=== PATIENT | male | born 1985 | race Caucasian/White ===

== ENCOUNTER 2018-08-28 23:06 | Emergency (ER) | payer OTHER ==
[~2018-08-28] VITALS: Ht 177.8 cm; Wt 81.6 kg
[~2018-08-28 23:06] MED LIST: AMOXICILLIN500 M2 PO; BENTYL20 MG PO; CARBIDOPA/LEVOD1 TA1 PO; CIPROFLOXACIN500 MG PO; IBU-8800 MG PO; KEFLEX500 MG PO; MOTRIN800 MG PO; Motrin,Rufen800 MG PO; NKHM PO; PEN-VEE K500 MG PO; PHENERGAN W/DM120 ML PO; PREDNICOT20 MG PO; PREDNISONE10 MG PO; PROAIR HFA0.09 MG/AC IH; SUBOXONE 8 MG-1 EACH SL; SUBUTEX8 M1 SL; TESSALON PERLE200 MG PO; TOBRAMYCIN OP; TRAMADOL HCL50 MG PO; TRAZODONE50 MG PO; WYMOX500 MG PO; ZANTAC150 MG PO; ZITHROMAX250 MG PO
[2018-08-29 00:55] LABS: BASO % 0.5 % (0.0-1.0); EOS # 0.2 10*3/uL (0.0-0.4); EOS % 2.2 % (1.0-4.0); HEMATOCRIT 37.1 % (42.0-52.0); HEMOGLOBIN 12.7 g/dl (14.0-18.0); LYMPH # 2.6 10*3/uL (1.3-4.4); LYMPH % 34.8 % (27.0-41.0); MEAN CELL VOLUME 93.7 fl (80.0-94.0); MEAN CORPUSCULAR HGB 32.1 pg (27.0-31.0); MEAN CORPUSCULAR HGB CONC 34.2 g/dl (33.0-37.0); MEAN PLATELET VOLUME 11.2 fl (9.6-12.3); MONO # 0.6 10*3/uL (0.1-1.0); MONO % 7.8 % (3.0-9.0); NEUT % 54.4 % (47.0-73.0); PLATELET COUNT AUTOMATED 243 10*3/uL (130-400); RED BLOOD COUNT 3.96 10*6/uL (4.50-5.90); RED CELL DISTRI WIDTH 12.6 % (0-14.5); WHITE BLOOD COUNT 7.4 10*3/uL (4.8-10.8)
[2018-08-29 01:24] LABS: ALBUMIN 3.9 gm/dl (3.1-4.5); ALKALINE PHOSPHATASE 57 U/L (45-117); BUN 10 mg/dl (7-24); CHLORIDE 103 mmol/L (98-107); CREATININE 0.81 mg/dL (0.70-1.30); LIPASE 78 U/L (73-393); POTASSIUM 3.8 mmol/L (3.5-5.1); SGOT/AST 27 IU/L (3-35); SGPT/ALT 25 U/L (12-78); SODIUM 139 mmol/L (136-145); TOTAL PROTEIN 7.2 gm/dL (6.4-8.2)
[2018-08-29 01:40] LABS: BILIRUBIN NEGATIVE (NEGATIVE); BLOOD NEGATIVE (NEGATIVE); CLARITY CLEAR (CLEAR); COLOR YELLOW (YELLOW); GLUCOSE NEGATIVE (NEGATIVE); KETONE NEGATIVE (NEGATIVE); LEUKO ESTERASE NEGATIVE (NEGATIVE); NITRITE NEGATIVE (NEGATIVE); SPECIFIC GRAVITY <= 1.005 (1.005-1.030); UROBILINOGEN 0.2 E.U./dl (0.2-1.0)
[2018-08-29 01:47] LABS: BACTERIA TRACE; WBC 0-2 wbc/hpf (0-5)
[2018-08-29] MEDS ORDERED: LOMOTIL 2.5-0.1 EACH PO (01:57)
[2018-08-29] MEDS ORDERED: ZOFRAN4 MG PO (01:57)
== END 2018-08-29 02:12 | disposition home or self-care (01) ==
LOC: ED 23:06
PROVIDERS: Emergency Medicine Emergency Medical Services
DX: K52.9 Noninfective gastroenteritis and colitis, unspecified (principal); E86.0 Dehydration; F17.200 Nicotine dependence, unspecified, uncomplicated

== ENCOUNTER 2021-03-12 08:11 | Emergency (ER) | payer OTHER ==
[~2021-03-12] VITALS: Ht 170.1 cm; Wt 68.0 kg
[~2021-03-12 08:11] MED LIST changes: +LOMOTIL 2.5-0.1 EACH PO; +SEPTDS PO; +ZOFRAN4 MG PO
[2021-03-12 08:57] LABS: BASO % 0.5 % (0.0-1.0); EOS # 0.1 10*3/uL (0.0-0.4); EOS % 1.4 % (1.0-4.0); HEMATOCRIT 34.8 % (42.0-52.0); LYMPH # 1.5 10*3/uL (1.3-4.4); LYMPH % 24.5 % (27.0-41.0); MEAN CELL VOLUME 87.2 fl (80.0-94.0); MEAN CORPUSCULAR HGB 28.3 pg (27.0-31.0); MEAN CORPUSCULAR HGB CONC 32.5 g/dl (33.0-37.0); MEAN PLATELET VOLUME 10.8 fl (9.6-12.3); MONO # 0.5 10*3/uL (0.1-1.0); MONO % 8.4 % (3.0-9.0); NEUT # 3.9 10*3/uL (2.3-7.9); PLATELET COUNT AUTOMATED 248 10*3/uL (130-400); RED BLOOD COUNT 3.99 10*6/uL (4.50-5.90); RED CELL DISTRI WIDTH 13.4 % (0-14.5); WHITE BLOOD COUNT 5.9 10*3/uL (4.8-10.8)
[2021-03-12 09:08] LABS: ACT PARTIAL THROMBO TIME 26.2 SECONDS (20.0-32.1); INTERNATIONAL NORM RATIO 1.1 (2.0-3.5)
[2021-03-12 09:28] LABS: ALBUMIN 3.4 gm/dl (3.1-4.5); ALKALINE PHOSPHATASE 59 U/L (45-117); BUN 9 mg/dl (7-24); CHLORIDE 105 mmol/L (98-107); CPK 432 U/L (39-308); CREATININE 0.79 mg/dL (0.70-1.30); LIPASE 33 U/L (73-393); POTASSIUM 3.6 mmol/L (3.5-5.1); SGOT/AST 36 IU/L (3-35); SGPT/ALT 32 U/L (12-78); SODIUM 138 mmol/L (136-145)
[2021-03-12 09:35] LABS: ACETAMINOPHEN (TYLENOL) < 5.0 ug/ml (10-30); ETHYL ALCOHOL < 3.0 mg/dl (<3); TROPONIN I < 0.015 ng/ml (<0.045)
[2021-03-12 09:48] LABS: BILIRUBIN Negative (Negative); BLOOD Negative (Negative); CLARITY Clear (Clear); COLOR Yellow (Yellow); GLUCOSE Negative (Negative); KETONE 2+ (Negative); LEUKO ESTERASE Negative (Negative); NITRITE Negative (Negative); PH 7.5 (4.5-8.0); SPECIFIC GRAVITY 1.015 (1.001-1.030)
[2021-03-12 09:58] LABS: BACTERIA 3+; MUCOUS 1+
[2021-03-12 10:04] LABS: URINE AMPHETAMINES > 1000 (1000ng/ml); URINE BARBITURATES < 200 (200ng/ml); URINE BENZODIAZEPINES < 200 (200ng/ml); URINE CANNABINOIDS (THC) > 50 (50ng/ml); URINE COCAINE > 300 (300ng/ml); URINE METHADONE < 300 (300ng/ml); URINE OPIATES < 300 (300ng/ml)
[2021-03-12 10:09] LABS: URINE PHENCYCLIDINE < 25 (25ng/ml)
== END 2021-03-12 10:37 | disposition home or self-care (01) ==
LOC: ED 08:11
PROVIDERS: Emergency Medicine
DX: F15.10 Other stimulant abuse, uncomplicated (principal)

== ENCOUNTER 2021-05-11 09:22 | Inpatient (IN) | payer OTHER ==
[~2021-05-11] VITALS: Ht 177.8 cm; Wt 77.1 kg
[2021-05-11 09:30] VITALS: BP 121/79
[2021-05-11 11:00] LABS: ALBUMIN 3.4 gm/dl (3.1-4.5); ALKALINE PHOSPHATASE 67 U/L (45-117); BUN 15 mg/dl (7-24); CHLORIDE 106 mmol/L (98-107); CREATININE 0.85 mg/dL (0.70-1.30); SGOT/AST 17 IU/L (3-35); SGPT/ALT 18 U/L (12-78); SODIUM 134 mmol/L (136-145); TOTAL PROTEIN 7.8 gm/dL (6.4-8.2)
[2021-05-11 11:15] LABS: ETHYL ALCOHOL < 3.0 mg/dl (<3)
[2021-05-11 11:26] LABS: BASO % 0.6 % (0.0-1.0); EOS # 0.1 10*3/uL (0.0-0.4); EOS % 1.8 % (1.0-4.0); HEMATOCRIT 38.8 % (42.0-52.0); LYMPH % 32.3 % (27.0-41.0); MEAN CELL VOLUME 87.4 fl (80.0-94.0); MEAN CORPUSCULAR HGB 29.7 pg (27.0-31.0); MEAN PLATELET VOLUME 10.5 fl (9.6-12.3); MONO # 0.6 10*3/uL (0.1-1.0); MONO % 8.8 % (3.0-9.0); NEUT # 3.5 10*3/uL (2.3-7.9); NEUT % 56.3 % (47.0-73.0); PLATELET COUNT AUTOMATED 278 10*3/uL (130-400); RED BLOOD COUNT 4.44 10*6/uL (4.50-5.90); RED CELL DISTRI WIDTH 13.2 % (0-14.5); WHITE BLOOD COUNT 6.3 10*3/uL (4.8-10.8)
[2021-05-11 11:28] LABS: BILIRUBIN Negative (Negative); BLOOD Negative (Negative); CLARITY Clear (Clear); COLOR Yellow (Yellow); GLUCOSE Negative (Negative); KETONE Negative (Negative); LEUKO ESTERASE Negative (Negative); NITRITE Negative (Negative); UROBILINOGEN 0.2 E.U./dl (0.0-1.0)
[2021-05-11 11:37] LABS: URINE AMPHETAMINES > 1000 (1000ng/ml); URINE BARBITURATES < 200 (200ng/ml); URINE BENZODIAZEPINES < 200 (200ng/ml); URINE CANNABINOIDS (THC) < 50 (50ng/ml); URINE COCAINE < 300 (300ng/ml); URINE METHADONE < 300 (300ng/ml); URINE OPIATES < 300 (300ng/ml)
[2021-05-11 11:41] LABS: RBC 0-2 rbc/hpf (0-2); URINE PHENCYCLIDINE < 25 (25ng/ml); WBC 0-2 wbc/hpf (0-5)
[2021-05-11 14:14] VITALS: BP 97/50
[2021-05-11 14:50] VITALS: BP 101/48
[2021-05-11 19:24] VITALS: BP 104/55
[2021-05-11 22:06] VITALS: BP 111/59
[2021-05-12 08:10] VITALS: BP 124/61
[2021-05-12 11:31] VITALS: BP 126/67
[2021-05-12 13:00] VITALS: BP 121/67
[2021-05-12 16:00] VITALS: BP 113/70
[2021-05-12 20:00] VITALS: BP 111/70
[2021-05-13 08:00] VITALS: BP 110/68
[2021-05-13 13:06] VITALS: BP 108/62
[2021-05-13 16:00] VITALS: BP 117/72
[2021-05-13 20:00] VITALS: BP 105/58
[2021-05-14] VITALS: BP 120/90
[2021-05-14 07:50] VITALS: BP 116/70
[2021-05-14] MEDS ORDERED: ATARAX,VISTARIL50 MG PO (09:26)
== END 2021-05-14 11:00 | disposition home or self-care (01) | DRG 773 ==
LOC: ED 09:22 → 5E 11:28 → EDHOLD 11:28 → 5E 05-12 12:12
PROVIDERS: Emergency Medicine; ADMIT Student in an Organized Health Care Education/Training Program; ATTEND Student in an Organized Health Care Education/Training Program
DX: F11.23 Opioid dependence with withdrawal (principal); E87.1 Hypo-osmolality and hyponatremia; D64.9 Anemia, unspecified; F41.9 Anxiety disorder, unspecified; F15.20 Other stimulant dependence, uncomplicated; F17.210 Nicotine dependence, cigarettes, uncomplicated; Z71.6 Tobacco abuse counseling; Z82.49 Family history of ischemic heart disease and other diseases of the circulatory system; Z79.899 Other long term (current) drug therapy

== ENCOUNTER 2021-06-27 12:01 | Emergency (ER) | payer OTHER ==
[~2021-06-27] VITALS: Ht 177.8 cm; Wt 72.6 kg
[~2021-06-27 12:01] MED LIST changes: +ATARAX,VISTARIL50 MG PO
== END 2021-06-27 12:42 | disposition home or self-care (01) ==
LOC: ED 12:01
DX: R09.89 Other specified symptoms and signs involving the circulatory and respiratory systems (principal); Z53.21 Procedure and treatment not carried out due to patient leaving prior to being seen by health care provider

== ENCOUNTER 2021-12-25 12:45 | Emergency (ER) | payer OTHER ==
[2021-12-25 12:58] VITALS: BP 118/59
[2021-12-25 13:38] LABS: BILIRUBIN Negative (Negative); BLOOD Negative (Negative); CLARITY Clear (Clear); COLOR Yellow (Yellow); GLUCOSE Negative (Negative); KETONE Negative (Negative); LEUKO ESTERASE Negative (Negative); NITRITE Negative (Negative); SPECIFIC GRAVITY 1.015 (1.001-1.030)
[2021-12-25 13:51] LABS: URINE AMPHETAMINES > 1000 (1000ng/ml); URINE BARBITURATES < 200 (200ng/ml); URINE BENZODIAZEPINES < 200 (200ng/ml); URINE CANNABINOIDS (THC) < 50 (50ng/ml); URINE COCAINE > 300 (300ng/ml); URINE METHADONE < 300 (300ng/ml); URINE OPIATES < 300 (300ng/ml)
[2021-12-25 13:52] LABS: URINE PHENCYCLIDINE < 25 (25ng/ml)
[2021-12-25 13:53] LABS: BASO % 0.3 % (0.0-1.0); EOS % 0.1 % (1.0-4.0); HEMATOCRIT 36.5 % (42.0-52.0); LYMPH # 0.7 10*3/uL (1.3-4.4); LYMPH % 4.8 % (27.0-41.0); MEAN CORPUSCULAR HGB 30.1 pg (27.0-31.0); MEAN CORPUSCULAR HGB CONC 34.2 g/dl (33.0-37.0); MEAN PLATELET VOLUME 11.6 fl (9.6-12.3); MONO # 0.9 10*3/uL (0.1-1.0); NEUT # 12.8 10*3/uL (2.3-7.9); NEUT % 88.5 % (47.0-73.0); PLATELET COUNT AUTOMATED 215 10*3/uL (130-400); RED BLOOD COUNT 4.15 10*6/uL (4.50-5.90); RED CELL DISTRI WIDTH 12.2 % (0-14.5); WHITE BLOOD COUNT 14.5 10*3/uL (4.8-10.8)
[2021-12-25 14:04] LABS: ACT PARTIAL THROMBO TIME 25.4 SECONDS (20.0-32.1)
[2021-12-25 14:05] VITALS: BP 133/67
[2021-12-25 14:06] LABS: BACTERIA TRACE
[2021-12-25 14:12] LABS: ALKALINE PHOSPHATASE 63 U/L (45-117); BUN 6 mg/dl (7-24); CHLORIDE 107 mmol/L (98-107); CPK 222 U/L (39-308); CREATININE 1.18 mg/dL (0.70-1.30); POTASSIUM 3.3 mmol/L (3.5-5.1); SGOT/AST 28 IU/L (3-35); SGPT/ALT 25 U/L (12-78); SODIUM 140 mmol/L (136-145); TOTAL PROTEIN 7.4 gm/dL (6.4-8.2)
[2021-12-25 14:29] LABS: ETHYL ALCOHOL < 3.0 mg/dl (<3)
[2021-12-25 16:01] VITALS: BP 124/73
[2021-12-25 17:17] VITALS: BP 117/63
== END 2021-12-25 20:03 | disposition left against medical advice (07) ==
LOC: ED 12:45 → EDHOLD 16:41 → ED 20:03
PROVIDERS: Emergency Medicine
DX: S02.2XXA Fracture of nasal bones, initial encounter for closed fracture (principal); Z20.822 Contact with and (suspected) exposure to COVID-19; G93.40 Encephalopathy, unspecified; F19.10 Other psychoactive substance abuse, uncomplicated; R74.8 Abnormal levels of other serum enzymes; Z87.891 Personal history of nicotine dependence; W18.30XA Fall on same level, unspecified, initial encounter; Y93.89 Activity, other specified; Y92.89 Other specified places as the place of occurrence of the external cause; Y99.8 Other external cause status

== ENCOUNTER 2022-03-20 06:19 | Emergency (ER) | payer OTHER ==
[~2022-03-20] VITALS: Ht 177.8 cm; Wt 74.8 kg
[2022-03-20] MEDS ORDERED: AMOX-CLAV 875-1 EACH PO (09:18)
== END 2022-03-20 08:10 ==
LOC: ED 06:19
DX: S61.412A Laceration without foreign body of left hand, initial encounter (principal); F17.200 Nicotine dependence, unspecified, uncomplicated; W45.8XXA Other foreign body or object entering through skin, initial encounter; Y93.89 Activity, other specified; Y92.89 Other specified places as the place of occurrence of the external cause; Y99.8 Other external cause status

== ENCOUNTER 2022-06-28 20:24 | Emergency (ER) | payer OTHER ==
[~2022-06-28] VITALS: Ht 177.8 cm; Wt 77.1 kg
[~2022-06-28 20:24] MED LIST changes: +AMOX-CLAV 875-1 EACH PO
== END 2022-06-28 22:21 | disposition home or self-care (01) ==
LOC: ED 20:24
DX: B34.9 Viral infection, unspecified (principal); Z98.890 Other specified postprocedural states; F17.200 Nicotine dependence, unspecified, uncomplicated; F10.90 Alcohol use, unspecified, uncomplicated; Z20.822 Contact with and (suspected) exposure to COVID-19

== ENCOUNTER 2022-06-29 04:37 | Emergency (ER) | payer OTHER | END 2022-06-29 06:08 | disposition left against medical advice (07) | LOC: ED 04:37 | DX: F19.10 Other psychoactive substance abuse, uncomplicated (principal); J06.9 Acute upper respiratory infection, unspecified; Z98.890 Other specified postprocedural states; F17.200 Nicotine dependence, unspecified, uncomplicated ==

== ENCOUNTER 2022-07-28 19:00 | Emergency (ER) | payer OTHER ==
[~2022-07-28] VITALS: Ht 172.7 cm; Wt 72.6 kg
== END 2022-07-28 20:09 | disposition left against medical advice (07) ==
LOC: ED 19:00
DX: R10.30 Lower abdominal pain, unspecified (principal); F32.A Depression, unspecified; R39.198 Other difficulties with micturition; F17.200 Nicotine dependence, unspecified, uncomplicated; Z98.890 Other specified postprocedural states

== ENCOUNTER 2022-07-28 20:16 | Emergency (ER) | payer MEDICAID ==
[~2022-07-28] VITALS: Ht 177.8 cm
[2022-07-28 21:34] LABS: BASO % 0.5 % (0.0-1.0); EOS # 0.1 10*3/uL (0.0-0.4); EOS % 0.9 % (1.0-4.0); HEMATOCRIT 39.1 % (42.0-52.0); LYMPH # 1.8 10*3/uL (1.3-4.4); LYMPH % 24.3 % (27.0-41.0); MEAN CELL VOLUME 87.7 fl (80.0-94.0); MEAN CORPUSCULAR HGB 29.4 pg (27.0-31.0); MEAN CORPUSCULAR HGB CONC 33.5 g/dl (33.0-37.0); MEAN PLATELET VOLUME 10.6 fl (9.6-12.3); MONO # 0.6 10*3/uL (0.1-1.0); MONO % 7.5 % (3.0-9.0); NEUT # 5.1 10*3/uL (2.3-7.9); NEUT % 66.7 % (47.0-73.0); PLATELET COUNT AUTOMATED 246 10*3/uL (130-400); RED BLOOD COUNT 4.46 10*6/uL (4.50-5.90); WHITE BLOOD COUNT 7.6 10*3/uL (4.8-10.8)
[2022-07-28 21:49] LABS: ALKALINE PHOSPHATASE 73 U/L (46-116); BUN 10 mg/dl (9-23); CHLORIDE 104 mmol/L (98-107); LIPASE 29 U/L (12-53); POTASSIUM 4.1 mmol/L (3.4-5.1); SGPT/ALT 14 U/L (10-49); TOTAL PROTEIN 7.9 gm/dL (6.0-8.0)
[2022-07-28 22:01] LABS: BILIRUBIN Negative (Negative); BLOOD Negative (Negative); CLARITY Clear (Clear); COLOR Yellow (Yellow); GLUCOSE Negative (Negative); KETONE Trace (Negative); LEUKO ESTERASE Trace (Negative); NITRITE Negative (Negative); SPECIFIC GRAVITY 1.025 (1.001-1.030)
[2022-07-28 22:09] LABS: URINE AMPHETAMINES Negative (1000ng/ml); URINE BARBITURATES Negative (200ng/ml); URINE BENZODIAZEPINES Negative (200ng/ml); URINE CANNABINOIDS (THC) Negative (50ng/ml); URINE COCAINE Negative (300ng/ml); URINE METHADONE Negative (300ng/ml); URINE OPIATES Positive (300ng/ml); URINE PHENCYCLIDINE Negative (25ng/ml)
[2022-07-28 22:10] LABS: CALCIUM OXALATE CRYSTALS Trace; MUCOUS 2+
== END 2022-07-29 00:39 | disposition home or self-care (01) ==
LOC: ED 20:16
PROVIDERS: Emergency Medicine
DX: R33.9 Retention of urine, unspecified (principal); K56.41 Fecal impaction; Z98.890 Other specified postprocedural states; F32.A Depression, unspecified; F17.210 Nicotine dependence, cigarettes, uncomplicated

== ENCOUNTER 2023-08-28 06:29 | Emergency (ER) | payer MEDICAID ==
[~2023-08-28] VITALS: Ht 172.7 cm; Wt 72.6 kg
[2023-08-28] MEDS ORDERED: Lidocaine Hydrochloride 10 ML SYR UR ONE (06:45)
[2023-08-28] MEDS ORDERED: MIRALAX POWDER17 G1 PO (14:41)
== END 2023-08-28 06:59 | disposition left against medical advice (07) ==
LOC: ED 06:29
DX: R10.9 Unspecified abdominal pain (principal); Z53.29 Procedure and treatment not carried out because of patient's decision for other reasons; R11.2 Nausea with vomiting, unspecified; F32.A Depression, unspecified; Z98.890 Other specified postprocedural states; F17.200 Nicotine dependence, unspecified, uncomplicated

== ENCOUNTER 2023-08-28 12:38 | Emergency (ER) | payer MEDICAID ==
[~2023-08-28] VITALS: Ht 172.7 cm; Wt 72.6 kg
[2023-08-28 13:22] LABS: BASO % 0.5 % (0.0-1.0); EOS # 0.1 10*3/uL (0.0-0.4); EOS % 0.8 % (1.0-4.0); HEMATOCRIT 39.5 % (42.0-52.0); LYMPH # 1.3 10*3/uL (1.3-4.4); LYMPH % 18.9 % (27.0-41.0); MEAN CELL VOLUME 92.1 fl (80.0-94.0); MEAN CORPUSCULAR HGB 30.1 pg (27.0-31.0); MEAN CORPUSCULAR HGB CONC 32.7 g/dl (33.0-37.0); MEAN PLATELET VOLUME 11.1 fl (9.6-12.3); MONO # 0.4 10*3/uL (0.1-1.0); MONO % 5.9 % (3.0-9.0); NEUT # 4.9 10*3/uL (2.3-7.9); NEUT % 73.7 % (47.0-73.0); PLATELET COUNT AUTOMATED 209 10*3/uL (130-400); RED BLOOD COUNT 4.29 10*6/uL (4.50-5.90); RED CELL DISTRI WIDTH 12.5 % (0-14.5); WHITE BLOOD COUNT 6.7 10*3/uL (4.8-10.8)
[2023-08-28 13:43] LABS: ALKALINE PHOSPHATASE 93 U/L (46-116); BUN 12 mg/dl (9-23); CHLORIDE 102 mmol/L (98-107); LIPASE 27 U/L (12-53); SGPT/ALT 40 U/L (5-49); TOTAL PROTEIN 8.4 gm/dL (6.0-8.0)
[2023-08-28] MEDS ORDERED: MIRALAX POWDER17 G1 PO (14:41)
== END 2023-08-28 14:44 | disposition home or self-care (01) ==
LOC: ED 12:38
PROVIDERS: Nurse Practitioner
DX: K56.41 Fecal impaction (principal); F32.A Depression, unspecified; Z98.890 Other specified postprocedural states; F17.200 Nicotine dependence, unspecified, uncomplicated; F11.10 Opioid abuse, uncomplicated

== ENCOUNTER 2023-11-23 12:50 | Emergency (ER) | payer MEDICAID ==
[~2023-11-23 12:50] MED LIST changes: +MIRALAX POWDER17 G1 PO
== END 2023-11-23 13:19 | disposition left against medical advice (07) ==
LOC: ED 12:50
DX: L02.91 Cutaneous abscess, unspecified (principal); Z53.21 Procedure and treatment not carried out due to patient leaving prior to being seen by health care provider

== ENCOUNTER 2024-02-28 06:27 | Emergency (ER) | payer MEDICAID ==
[~2024-02-28] VITALS: Ht 177.8 cm; Wt 72.6 kg
[2024-02-28] MEDS ORDERED: Ketorolac Tromethamine 60 MG/2 ML VIAL IM ONE (06:40)
[2024-02-28] MEDS ORDERED: Dexamethasone Sodium Phospha 20 MG/5 ML VIAL IM ONE (06:40)
[2024-02-28] MEDS ORDERED: Cyclobenzaprine Hydrochlorid 10 MG TAB PO ONE (06:40)
[2024-02-28] MEDS ORDERED: PREDNISONE20 M1 PO (07:56)
[2024-02-28] MEDS ORDERED: MELOXICAM15 MG PO (07:56)
== END 2024-02-28 08:03 | disposition home or self-care (01) ==
LOC: ED 06:27
DX: M54.50 Low back pain, unspecified (principal); F11.90 Opioid use, unspecified, uncomplicated; F32.A Depression, unspecified; F17.200 Nicotine dependence, unspecified, uncomplicated; Z59.00 Homelessness unspecified; Z98.890 Other specified postprocedural states

== ENCOUNTER 2024-07-17 00:17 | Emergency (ER) | payer MEDICAID ==
[~2024-07-17] VITALS: Ht 177.8 cm; Wt 74.8 kg
[~2024-07-17 00:17] MED LIST changes: +MELOXICAM15 MG PO; +PREDNISONE20 M1 PO
[2024-07-17] MEDS ORDERED: MIRALAX POWDER17 G1 PO (01:05)
== END 2024-07-17 01:25 | disposition home or self-care (01) ==
LOC: ED 00:17
DX: K59.00 Constipation, unspecified (principal); F17.200 Nicotine dependence, unspecified, uncomplicated; Z79.899 Other long term (current) drug therapy; Z98.890 Other specified postprocedural states